=== PATIENT | male | born 1990 | race Two or more races ===

== ENCOUNTER 2018-11-06 21:29 | Emergency (ER) | payer SELFPAY ==
[~2018-11-06] VITALS: Ht 175.3 cm; Wt 77.1 kg
--- NOTE | 2018-11-06 21:32 | NUR ---
ED Nurse Note: pt brought in by [facility], pt states he just called 911 because he was hungry and needed food. pt given sandwich and water. no medical complaints at this time.
--- NOTE | 2018-11-06 21:34 | NUR ---
ED Nurse Note: pt refused to do mini-cog, states "I don't want to do it. I'm hungry"
[2018-11-06 21:35] VITALS: BP 148/92
--- NOTE | 2018-11-06 21:44 | Emergency Room Report ---
History of Present Illness General Chief Complaint: General Complaint Source: Patient Present Illness HPI Is a 28-year-old male with psychiatric history and drug abuse. He was just released from [facility] today. He called 911 with initially with chief complaint of suicidal thoughts. Here he was asking for food. Said that he is not suicidal and just said that so he can be brought to the hospital so he can get food. Denies any hallucination. Denies any nausea vomiting. Denies any other complaint. Allergies: Coded Allergies: AMOXICILLIN (Verified Allergy, Unknown, 11/06/18) PENICILLINS (Verified Allergy, Unknown, 11/06/18) Patient History Past Medical History: see triage record, old chart reviewed Past Surgical History: none Pertinent Family History: none Social History: Reports: drug use Immunizations: other Reviewed Nursing Documentation: PMH: Agreed; PSxH: Agreed Nursing Documentation-PMH Past Medical History: No History, Except For Hx Hypertension: Yes Hx Diabetes: Yes Review of Systems Eye: Denies: eye pain, blurred vision ENT: Denies: ear pain, nose congestion, throat swelling Respiratory: Denies: cough, shortness of breath Cardiovascular: Denies: chest pain, palpitations Gastrointestinal: Denies: abdominal pain, diarrhea, nausea, vomiting Musculoskeletal: Denies: back pain, joint pain Skin: Denies: rash Neurological: Denies: headache, numbness Endocrine: Denies: increased thirst, increased urine Hematologic/Lymphatic: Denies: easy bruising All Other Systems: negative except mentioned in HPI Physical Exam Vital Signs Date Time Temp Pulse Resp B/P (MAP) Pulse Ox O2 Delivery O2 Flow Rate FiO2 11/06/18 21:32 99.1 96 16 148/92 97 11/06/18 21:35 Room Air vitals normal Sp02 EP Interpretation: reviewed, normal General Appearance: well appearing, no apparent distress, alert Head: normocephalic, atraumatic Eyes: bilateral eye PERRL, bilateral eye EOMI ENT: hearing grossly normal, normal pharynx Neck: full range of motion, supple, no meningismus Respiratory: chest non-tender, lungs clear, normal breath sounds Cardiovascular #1: regular rate, rhythm, no murmur Gastrointestinal: normal bowel sounds, non tender, no mass, no organomegaly, no bruit, non-distended Musculoskeletal: back normal, gait/station normal, normal range of motion Psychiatric: mood/affect normal Skin: warm/dry Medical Decision Making Diagnostic Impression: Primary Impression: Encounter for generalized patient complaints ER Course Patient presents initially with suicidal thoughts. He tell me and the nursing staff that he's not suicidal. No homicidal thoughts. Just wants some food. He ate without a problem here. I see no criteria for 5150. Last Vital Signs Date Time Temp Pulse Resp B/P (MAP) Pulse Ox O2 Delivery O2 Flow Rate FiO2 11/06/18 21:35 96 16 Room Air 11/06/18 21:35 99.1 148/92 97 Status: improved Disposition: HOME, SELF-CARE Condition: Stable Scripts No Active Prescriptions or Reported Meds Additional Instructions: Abstain from drugs and alcohol. Follow-up with mental health in a week. Return if worse. Reji Kramer MD Nov 06, 2018 21:44
--- NOTE | 2018-11-06 21:58 | NUR ---
ED Nurse Note: pt cleared to be d/c per ERMD, pt discharge and aftercare instruction provided, pt vss, ambulatory w/ steady gait, left w/ all belongings, ID band removed. pt provided with sweatshirt, pt states he will take bus to go meet his friends at [employer] in [place]. food provided for extra
[2018-11-06 21:59] VITALS: BP 148/92
== END 2018-11-06 21:58 | disposition home or self-care (01) ==
LOC: EDBD 21:29 → EMR 21:43
DX: R45.851 Suicidal ideations (principal); Z88.0 Allergy status to penicillin; E11.9 Type 2 diabetes mellitus without complications; I10 Essential (primary) hypertension; F19.90 Other psychoactive substance use, unspecified, uncomplicated
CPT/HCPCS: 99281

== ENCOUNTER 2019-01-05 18:26 | Emergency (ER) | payer SELFPAY ==
[~2019-01-05] VITALS: Ht 172.7 cm; Wt 72.6 kg
--- NOTE | 2019-01-05 18:34 | NUR ---
ED Nurse Note: PT BROUGHT IN BY [id number] FROM [facility]. AOX[facility]. PT C/O GENERALIZED WEAKNESS, DIZZINESS, AND BODYACHES, PAIN 10/10 X 4 HOURS AGO. GAIT STEADY. PT ALSO C/O NAUSEA BUT DENIES VOMITING.
[2019-01-05 18:36] VITALS: BP 118/76
[2019-01-05 19:11] LABS: BASOPHILS % (AUTO) 0.5 % (0.0-2.0); EOSINOPHILS % (AUTO) 1.9 % (0.0-3.0); HEMATOCRIT 38.8 % (42.0-52.0); HEMOGLOBIN 13.9 G/DL (14.2-18.0); LYMPHOCYTES % (AUTO) 12.8 % (20.0-45.0); MEAN CORPUSCULAR VOLUME 86 FL (80-99); MONOCYTES % (AUTO) 10.1 % (1.0-10.0); NEUTROPHILS % (AUTO) 74.7 % (45.0-75.0); PLATELET COUNT 224 K/UL (150-450); RED BLOOD COUNT 4.53 M/UL (4.70-6.10); RED CELL DISTRIBUTION WIDTH 11.1 % (11.6-14.8); WHITE BLOOD COUNT 9.1 K/UL (4.8-10.8)
--- NOTE | 2019-01-05 19:15 | NUR ---
ED Nurse Note: report received from RN laurie and assumed care, pt vss, resp even and unlabored on RA, resting at this time, safety precautions in place, will cont monitor.
--- NOTE | 2019-01-05 19:29 | Emergency Room Report ---
History of Present Illness General Chief Complaint: Generalized Weakness Source: Patient, EMS Present Illness HPI Patient presents with complaints of body aches feeling weak denies any headache denies any chest pain Denies any vomiting or diarrhea Patient has been under the sun more than usual Also reports feeling very hungry Denies any other recent fall or trauma denies any chest pain or shortness of breath Allergies: Coded Allergies: AMOXICILLIN (Verified Allergy, Unknown, 11/06/18) PENICILLINS (Verified Allergy, Unknown, 11/06/18) Patient History Past Medical History: see triage record Pertinent Family History: none Reviewed Nursing Documentation: PMH: Agreed; PSxH: Agreed Nursing Documentation-PMH Past Medical History: No History, Except For Hx Hypertension: Yes Hx Diabetes: Yes Review of Systems All Other Systems: negative except mentioned in HPI Physical Exam Vital Signs Date Time Temp Pulse Resp B/P (MAP) Pulse Ox O2 Delivery O2 Flow Rate FiO2 01/05/19 18:27 97.9 68 18 121/81 (94) 100 Room Air Sp02 EP Interpretation: reviewed, normal General Appearance: well appearing, no apparent distress Head: normocephalic, atraumatic Eyes: bilateral eye PERRL, bilateral eye EOMI ENT: hearing grossly normal, normal pharynx, TMs + canals normal, uvula midline Neck: full range of motion, supple, no meningismus, no bony tend Respiratory: lungs clear, normal breath sounds, no rhonchi, no respiratory distress, no retraction, no accessory muscle use Cardiovascular #1: normal peripheral pulses, regular rate, rhythm, no edema, no gallop, no JVD, no murmur Gastrointestinal: normal bowel sounds, non tender, soft, no mass, no organomegaly, non-distended, no guarding, no hernia, no pulsatile mass, no rebound Genitourinary: no CVA tenderness Musculoskeletal: normal inspection Neurologic: oriented x3, responsive, wrapper layer and examiner soft work III-XII nml as tested, motor strength/ tone normal, sensory intact Psychiatric: mood/affect normal Skin: normal color, no rash, warm/dry, palpation normal Lymphatic: normal inspection, no adenopathy Medical Decision Making Diagnostic Impression: Primary Impression: Myalgia ER Course Multiple differentials including but not limited to dehydration, viral syndrome , meningitis rhabdomyolysis considered, Patient has IV hydration initiated along with blood work Remained stable and hemodynamically appropriate Blood work is also at baseline levels Patient is stable for close outpatient follow-up Labs Test 01/05/19 18:55 White Blood Count 9.1 K/UL (4.8-10.8) Red Blood Count 4.53 M/UL (4.70-6.10) Hemoglobin 13.9 G/DL (14.2-18.0) Hematocrit 38.8 % (42.0-52.0) Mean Corpuscular Volume 86 FL (80-99) Mean Corpuscular Hemoglobin 30.7 PG (27.0-31.0) Mean Corpuscular Hemoglobin Concent 35.9 G/DL (32.0-36.0) Red Cell Distribution Width 11.1 % (11.6-14.8) Platelet Count 224 K/UL (150-450) Mean Platelet Volume 6.2 FL (6.5-10.1) Neutrophils (%) (Auto) 74.7 % (45.0-75.0) Lymphocytes (%) (Auto) 12.8 % (20.0-45.0) Monocytes (%) (Auto) 10.1 % (1.0-10.0) Eosinophils (%) (Auto) 1.9 % (0.0-3.0) Basophils (%) (Auto) 0.5 % (0.0-2.0) Sodium Level 141 MMOL/L (136-145) Potassium Level 3.8 MMOL/L (3.5-5.1) Chloride Level 103 MMOL/L (98-107) Carbon Dioxide Level 26 MMOL/L (21-32) Anion Gap 12 mmol/L (5-15) Blood Urea Nitrogen 11 mg/dL (7-18) Creatinine 0.9 MG/DL (0.55-1.30) Estimat Glomerular Filtration Rate > 60 mL/min (>60) Glucose Level 100 MG/DL (74-106) Calcium Level 8.9 MG/DL (8.5-10.1) Total Bilirubin 0.6 MG/DL (0.2-1.0) Aspartate Amino Transf (AST/SGOT) 23 U/L (15-37) Alanine Aminotransferase (ALT/SGPT) 19 U/L (12-78) Alkaline Phosphatase 44 U/L (46-116) Total Creatine Kinase 266 U/L (26-308) Total Protein 6.9 G/DL (6.4-8.2) Albumin 4.1 G/DL (3.4-5.0) Globulin 2.8 g/dL Albumin/Globulin Ratio 1.5 (1.0-2.7) Last Vital Signs Date Time Temp Pulse Resp B/P (MAP) Pulse Ox O2 Delivery O2 Flow Rate FiO2 01/05/19 18:36 72 16 Room Air 01/05/19 18:36 98.0 118/76 99 Status: improved Disposition: HOME, SELF-CARE Condition: Improved Scripts No Active Prescriptions or Reported Meds Additional Instructions: Patient is provided with the discharge instructions notified to follow up with primary doctor in the next 2-3 days otherwise return to the er with any worsening symptoms. Please note that this report is being documented using [employer] technology. This can lead to erroneous entry secondary to incorrect interpretation by the dictating instrument. Karissa Crocker DO Jan 05, 2019 19:29
[2019-01-05 19:40] LABS: ANION GAP 12 mmol/L (5-15); BLOOD UREA NITROGEN 11 mg/dL (7-18); CALCIUM 8.9 MG/DL (8.5-10.1); CARBON DIOXIDE 26 MMOL/L (21-32); CHLORIDE 103 MMOL/L (98-107); CREATININE 0.9 MG/DL (0.55-1.30); POTASSIUM 3.8 MMOL/L (3.5-5.1); SODIUM 141 MMOL/L (136-145)
[2019-01-05 19:45] LABS: ALANINE AMINOTRANSFERASE 19 U/L (12-78); ALBUMIN 4.1 G/DL (3.4-5.0); ALBUMIN/GLOBULIN RATIO 1.5 (1.0-2.7); ALKALINE PHOSPHATASE 44 U/L (46-116); ASPARTATE AMINO TRANSFERASE 23 U/L (15-37); BILIRUBIN,TOTAL 0.6 MG/DL (0.2-1.0); CREATINE KINASE 266 U/L (26-308)
--- NOTE | 2019-01-05 20:54 | NUR ---
ED Nurse Note: pt cleared to be d/c per ERMD, pt discharge and aftercare instruction provided, pt advised to follow up with pcp or return to ed if changes in condition, vss, ambulatory w/ steady gait, iv d/c and id band removed, pt given sandwich and juice, pt has weather appropriate clothing, refused to state where he is going but pt given list of homeless prison, pt left w/ all belongings.
[2019-01-05 21:00] VITALS: BP 116/74
== END 2019-01-05 20:50 | disposition home or self-care (01) ==
LOC: EDUNIT# 18:26 → EDBD 18:26 → EMR 18:49
DX: M79.10 Myalgia, unspecified site (principal); Z88.1 Allergy status to other antibiotic agents; Z88.0 Allergy status to penicillin; I10 Essential (primary) hypertension; E11.9 Type 2 diabetes mellitus without complications
CPT/HCPCS: 36415; 80053; 82550; 85025; 96360; 99284